=== PATIENT | female | born 1985 | race Caucasian/White ===

== ENCOUNTER 2023-09-24 12:02 | Emergency (ER) | payer OTHER ==
[2023-09-24 12:20] VITALS: BP 91/65; PULSE 83; RESP 20; TEMP 98.4; BMI 21.9
[2023-09-24 13:40] LABS: EPI CELLS 5 /uL (0-25.1); HYALINE CASTS 0 /uL (0-3.1); URINE APPEARANCE CLEAR; URINE BACTERIA 8 /uL (0-1359); URINE BILIRUBIN NEGATIVE (NEGATIVE); URINE COLOR YELLOW; URINE GLUCOSE (UA) NEGATIVE (NEGATIVE); URINE KETONE NEGATIVE (NEGATIVE); URINE LEUK ESTERASE NEGATIVE (NEGATIVE); URINE NITRITE NEGATIVE (NEGATIVE); URINE PROTEIN NEGATIVE (NEGATIVE); URINE RBC 75 /uL (0-23.9); URINE WBC 8 /uL (0-25.8)
== END 2023-09-24 14:01 | disposition home or self-care (01) ==
LOC: JER 12:02
DX: R50.9 Fever, unspecified (principal); R51.9 Headache, unspecified; R07.0 Pain in throat; J10.1 Influenza due to other identified influenza virus with other respiratory manifestations; Z20.822 Contact with and (suspected) exposure to COVID-19
CPT/HCPCS: 0241U-QW; 71046-TC-FY; 81003; 87086; 99284-25